=== PATIENT | male | born 1945 | race African-American/Black ===

== ENCOUNTER 2017-05-19 02:48 | Emergency (ER) | payer MEDICARE ==
[~2017-05-19] VITALS: Ht 182.8 cm; Wt 111.1 kg
[~2017-05-19 02:48] MED LIST: MEDROL DOSEPAK4 MG PO; VICODIN ES 7501 TAB PO
[2017-05-19 03:29] LABS: BASO % 0.3 % (0.0-1.0); EOS % 0.1 % (1.0-4.0); HEMATOCRIT 45.2 % (42.0-52.0); HEMOGLOBIN 15.4 g/dl (14.0-18.0); LYMPH # 0.8 10*3/uL (1.3-4.4); LYMPH % 5.2 % (27.0-41.0); MEAN CELL VOLUME 88.1 fl (80.0-94.0); MEAN CORPUSCULAR HGB CONC 34.1 g/dl (33.0-37.0); MEAN PLATELET VOLUME 10.3 fl (9.6-12.3); MONO # 0.6 10*3/uL (0.1-1.0); MONO % 4.4 % (3.0-9.0); NEUT % 89.6 % (47.0-73.0); PLATELET COUNT AUTOMATED 247 10*3/uL (130-400); RED BLOOD COUNT 5.13 10*6/uL (4.50-5.90); RED CELL DISTRI WIDTH 14.3 % (0-14.5); WHITE BLOOD COUNT 14.4 10*3/uL (4.8-10.8)
[2017-05-19 03:46] LABS: ALKALINE PHOSPHATASE 111 U/L (45-117); BUN 24 mg/dl (7-24); CHLORIDE 104 mmol/L (98-107); CREATININE 1.17 mg/dL (0.70-1.30); POTASSIUM 3.9 mmol/L (3.5-5.1); SGOT/AST 17 IU/L (3-35); SGPT/ALT 31 U/L (12-78); SODIUM 141 mmol/L (136-145); TOTAL PROTEIN 8.8 gm/dL (6.4-8.2)
[2017-05-19 03:47] LABS: TROPONIN I < 0.015 ng/ml (<0.045)
[2017-05-19] MEDS ORDERED: Zofran4 MG SL (04:32)
== END 2017-05-19 04:48 | disposition home or self-care (01) ==
LOC: ED 02:48
PROVIDERS: Student in an Organized Health Care Education/Training Program
DX: R11.2 Nausea with vomiting, unspecified (principal); R19.7 Diarrhea, unspecified

== ENCOUNTER → 2018-08-19 | Outpatient (CLI) | payer MEDICARE ==
[~2018-08-19] MED LIST changes: +ATORVASTATIN CA20 M1 PO; +CEPHALEXIN500 M1 PO; +LEVOTHYROXINE50 MCG PO; +Zofran4 MG SL
== END | disposition home or self-care (01) ==
LOC: LAB 14:05
DX: R19.7 Diarrhea, unspecified (principal)

== ENCOUNTER 2018-10-05 13:03 | Emergency (ER) | payer MEDICARE ==
[~2018-10-05] VITALS: Ht 180.3 cm; Wt 97.5 kg
[~2018-10-05 13:03] MED LIST changes: -ATORVASTATIN CA20 M1 PO; -CEPHALEXIN500 M1 PO; -LEVOTHYROXINE50 MCG PO
[2018-10-05] MEDS ORDERED: LEVOTHYROXINE50 MCG PO (13:13)
[2018-10-05] MEDS ORDERED: ATORVASTATIN CA20 M1 PO (13:13)
[2018-10-05 15:13] LABS: BILIRUBIN NEGATIVE (NEGATIVE); BLOOD 3+ (NEGATIVE); CLARITY SL CLOUDY (CLEAR); COLOR YELLOW (YELLOW); GLUCOSE NEGATIVE (NEGATIVE); KETONE NEGATIVE (NEGATIVE); LEUKO ESTERASE 1+ (NEGATIVE); NITRITE POSITIVE (NEGATIVE); UROBILINOGEN 0.2 E.U./dl (0.2-1.0)
[2018-10-05 15:19] LABS: BACTERIA 2+; RBC TNTC rbc/hpf (0-2); WBC 21-30 wbc/hpf (0-5)
[2018-10-05] MEDS ORDERED: CEPHALEXIN500 M1 PO (15:30)
== END 2018-10-05 15:41 | disposition home or self-care (01) ==
LOC: ED 13:03
PROVIDERS: Physician Assistant
DX: N39.0 Urinary tract infection, site not specified (principal); R60.0 Localized edema; Z85.46 Personal history of malignant neoplasm of prostate; Z98.890 Other specified postprocedural states; Z93.6 Other artificial openings of urinary tract status; Z93.3 Colostomy status

== ENCOUNTER 2018-10-17 17:27 | Emergency (ER) | payer MEDICARE ==
[~2018-10-17] VITALS: Ht 177.8 cm; Wt 98.9 kg
[~2018-10-17 17:27] MED LIST changes: +ATORVASTATIN CA20 M1 PO; +CEPHALEXIN500 M1 PO; +LEVOTHYROXINE50 MCG PO
== END 2018-10-17 18:03 | disposition home or self-care (01) ==
LOC: ED 17:27
DX: Z48.01 Encounter for change or removal of surgical wound dressing (principal); Z79.2 Long term (current) use of antibiotics

== ENCOUNTER 2018-10-18 22:57 | Emergency (ER) | payer MEDICARE ==
[~2018-10-18] VITALS: Ht 177.8 cm; Wt 99.8 kg
== END 2018-10-18 23:20 | disposition home or self-care (01) ==
LOC: ED 22:57
DX: Z48.01 Encounter for change or removal of surgical wound dressing (principal); Z98.890 Other specified postprocedural states

== ENCOUNTER 2018-11-13 10:53 | Emergency (ER) | payer MEDICARE ==
[~2018-11-13] VITALS: Ht 177.8 cm; Wt 97.5 kg
[2018-11-13 11:39] LABS: BASO # 0.1 10*3/uL (0.0-0.1); BASO % 0.5 % (0.0-1.0); EOS # 0.4 10*3/uL (0.0-0.4); EOS % 3.1 % (1.0-4.0); HEMATOCRIT 30.2 % (42.0-52.0); HEMOGLOBIN 9.1 g/dl (14.0-18.0); LYMPH # 2.5 10*3/uL (1.3-4.4); LYMPH % 20.6 % (27.0-41.0); MEAN CELL VOLUME 85.8 fl (80.0-94.0); MEAN CORPUSCULAR HGB 25.9 pg (27.0-31.0); MEAN CORPUSCULAR HGB CONC 30.1 g/dl (33.0-37.0); MEAN PLATELET VOLUME 9.2 fl (9.6-12.3); MONO # 0.9 10*3/uL (0.1-1.0); MONO % 7.4 % (3.0-9.0); NEUT # 8.2 10*3/uL (2.3-7.9); NEUT % 67.8 % (47.0-73.0); PLATELET COUNT AUTOMATED 324 10*3/uL (130-400); RED BLOOD COUNT 3.52 10*6/uL (4.50-5.90); RED CELL DISTRI WIDTH 15.6 % (0-14.5); WHITE BLOOD COUNT 12.1 10*3/uL (4.8-10.8)
[2018-11-13 11:49] LABS: ACT PARTIAL THROMBO TIME 26.3 SECONDS (20.0-32.1)
[2018-11-13 11:59] LABS: ALKALINE PHOSPHATASE 115 U/L (45-117); BUN 14 mg/dl (7-24); CHLORIDE 105 mmol/L (98-107); CREATININE 1.06 mg/dL (0.70-1.30); POTASSIUM 4.2 mmol/L (3.5-5.1); SGOT/AST 12 IU/L (3-35); SGPT/ALT 14 U/L (12-78); SODIUM 139 mmol/L (136-145); TOTAL PROTEIN 8.4 gm/dL (6.4-8.2)
== END 2018-11-13 13:22 | disposition home or self-care (01) ==
LOC: ED 10:53
PROVIDERS: Emergency Medicine
DX: R60.0 Localized edema (principal); Z93.3 Colostomy status; Z93.6 Other artificial openings of urinary tract status; Z97.8 Presence of other specified devices; Z79.2 Long term (current) use of antibiotics; Z85.038 Personal history of other malignant neoplasm of large intestine; Z85.46 Personal history of malignant neoplasm of prostate; Z85.51 Personal history of malignant neoplasm of bladder

== ENCOUNTER 2018-12-11 06:55 | Emergency (ER) | payer MEDICARE ==
[~2018-12-11] VITALS: Ht 177.8 cm; Wt 98.0 kg
[2018-12-11 07:19] LABS: HEMATOCRIT 32.5 % (42.0-52.0); HEMOGLOBIN 10.1 g/dl (14.0-18.0); MEAN CELL VOLUME 80.2 fl (80.0-94.0); MEAN CORPUSCULAR HGB 24.9 pg (27.0-31.0); MEAN CORPUSCULAR HGB CONC 31.1 g/dl (33.0-37.0); MEAN PLATELET VOLUME 8.9 fl (9.6-12.3); PLATELET COUNT AUTOMATED 403 10*3/uL (130-400); RED BLOOD COUNT 4.05 10*6/uL (4.50-5.90); RED CELL DISTRI WIDTH 15.9 % (0-14.5); WHITE BLOOD COUNT 17.9 10*3/uL (4.8-10.8)
[2018-12-11 07:29] LABS: ACT PARTIAL THROMBO TIME 24.2 SECONDS (20.0-32.1); INTERNATIONAL NORM RATIO 1.1 (2.0-3.5)
[2018-12-11 07:35] LABS: ALKALINE PHOSPHATASE 120 U/L (45-117); BUN 23 mg/dl (7-24); CHLORIDE 102 mmol/L (98-107); CREATININE 1.96 mg/dL (0.70-1.30); SGOT/AST 16 IU/L (3-35); SGPT/ALT 13 U/L (12-78); SODIUM 136 mmol/L (136-145); TOTAL PROTEIN 9.5 gm/dL (6.4-8.2)
[2018-12-11 07:37] LABS: TROPONIN I < 0.015 ng/ml (<0.045)
[2018-12-11 07:40] LABS: PLATELET SUFFICIENCY HIGH (NORMAL); TOTAL CELLS COUNTED 100 #CELLS
[2018-12-11 07:41] LABS: POLYCHROMASIA SLIGHT
== END 2018-12-11 10:44 | disposition short-term general hospital (02) ==
LOC: ED 06:55
PROVIDERS: Family Medicine
DX: A41.9 Sepsis, unspecified organism (principal); R65.21 Severe sepsis with septic shock; K56.699 Other intestinal obstruction unspecified as to partial versus complete obstruction; Z93.3 Colostomy status; Z93.6 Other artificial openings of urinary tract status